=== PATIENT | female | born 1960 | race Hispanic/Latino ===

== ENCOUNTER 2022-06-27 03:15 | Emergency (ER) | payer OTHER ==
[2022-06-27] MEDS ORDERED: ASPIRIN 81MG CHEW TAB PO ONE (03:30)
[2022-06-27 03:49] LABS: BASOPHILS % (AUTO) 0.8 % (0.0-5.0); EOSINOPHILS % (AUTO) 2.7 % (0.0-8.0); LYMPHOCYTES % (AUTO) 19.5 % (21.0-51.0); MEAN CORPUSCULAR HEMOGLOBIN 29.1 pg (27.0-33.0); MEAN CORPUSCULAR HGB CONC 32.3 g/dL (32.0-36.0); MEAN CORPUSCULAR VOLUME 90.2 fL (79-99); MONOCYTES % (AUTO) 9.2 % (3.0-13.0); NEUTROPHILS % (AUTO) 67.4 % (40.0-77.0); PLATELET COUNT (AUTO) 263 K/uL (130-400); RED BLOOD CELL COUNT(AUTO) 3.88 MIL/uL (4.00-5.50); RED CELL DISTRIBUTION WIDTH 14.1 % (11.0-15.5); WHITE BLOOD COUNT (AUTO) 7.9 K/uL (4.8-10.8)
[2022-06-27 04:36] LABS: CREATININE 1.1 mg/dL (0.5-1.5); POTASSIUM 4.5 mmol/L (3.5-5.1)
[2022-06-27 04:37] LABS: TOTAL PROTEIN, SERUM 7.1 g/dL (6.0-8.3)
[2022-06-27 04:55] LABS: APPEARANCE,URINE CLOUDY (CLEAR); BILIRUBIN,URINE NEGATIVE (NEGATIVE); COLOR,URINE COLORLESS (YELLOW); GLUCOSE, URINE (UA) NEGATIVE (NEGATIVE); KETONES,URINE NEGATIVE (NEGATIVE); LEUKOCYTE ESTERASE ,URINE 250 Leu/uL (NEGATIVE); NITRATE,URINE NEGATIVE (NEGATIVE); OCCULT BLOOD,URINE NEGATIVE (NEGATIVE); PROTEIN,URINE NEGATIVE (NEGATIVE); UROBILINOGEN,URINE 0.2 mg/dL (0.2-1.0)
[2022-06-27 05:01] LABS: BACTERIA,URINE FEW /HPF (None Seen); SQUAMOUS EPITHELIAL CELL,UR MOD /HPF (0-2)
[2022-06-27 05:09] VITALS: BP 126/57
[2022-06-27] MEDS ORDERED: SULF1TAB42 PO (05:09)
[2022-06-27] MEDS ORDERED: SULFAMETHOX-TMP DS 800/160 TAB PO ONE (05:30)
== END 2022-06-27 05:41 | disposition home or self-care (01) ==
LOC: EDH 03:15
DX: N39.0 Urinary tract infection, site not specified (principal); R07.9 Chest pain, unspecified; R06.02 Shortness of breath; E11.9 Type 2 diabetes mellitus without complications
CPT/HCPCS: 36415; 71045; 80053; 81001; 84484; 85025; 87088; 93005

== ENCOUNTER 2022-07-01 22:43 | Inpatient (IN) | payer OTHER ==
[~2022-07-01] VITALS: Ht 149.9 cm; Wt 183.7 kg
[~2022-07-01 22:43] MED LIST: SULF1TAB42 PO
[2022-07-01 23:10] LABS: BASOPHILS % (AUTO) 0.4 % (0.0-5.0); EOSINOPHILS % (AUTO) 1.1 % (0.0-8.0); HEMATOCRIT 34.8 % (36-48); LYMPHOCYTES % (AUTO) 11.9 % (21.0-51.0); MEAN CORPUSCULAR HEMOGLOBIN 28.8 pg (27.0-33.0); MEAN CORPUSCULAR HGB CONC 33.6 g/dL (32.0-36.0); MEAN CORPUSCULAR VOLUME 85.7 fL (79-99); MONOCYTES % (AUTO) 7.7 % (3.0-13.0); NEUTROPHILS % (AUTO) 78.3 % (40.0-77.0); PLATELET COUNT (AUTO) 251 K/uL (130-400); RED BLOOD CELL COUNT(AUTO) 4.06 MIL/uL (4.00-5.50); RED CELL DISTRIBUTION WIDTH 13.8 % (11.0-15.5)
[2022-07-01 23:26] LABS: APPEARANCE,URINE CLEAR (CLEAR); BILIRUBIN,URINE NEGATIVE (NEGATIVE); COLOR,URINE COLORLESS (YELLOW); GLUCOSE, URINE (UA) NEGATIVE (NEGATIVE); KETONES,URINE NEGATIVE (NEGATIVE); LEUKOCYTE ESTERASE ,URINE NEGATIVE Leu/uL (NEGATIVE); NITRATE,URINE NEGATIVE (NEGATIVE); OCCULT BLOOD,URINE NEGATIVE (NEGATIVE); PROTEIN,URINE NEGATIVE (NEGATIVE); UROBILINOGEN,URINE 0.2 mg/dL (0.2-1.0)
[2022-07-01 23:28] LABS: ALBUMIN 3.4 g/dL (3.5-5.0); CREATININE 1.4 mg/dL (0.5-1.5); POTASSIUM 4.5 mmol/L (3.5-5.1); TOTAL PROTEIN, SERUM 6.7 g/dL (6.0-8.3)
[2022-07-01 23:30] LABS: B-TYPE NATRIURETIC PEPTIDE 297 pg/mL (0-100)
[2022-07-02] VITALS (33 sets, daily range): BP systolic 83–151; BP diastolic 32–92
[2022-07-02] MEDS ORDERED: HYDRALAZINE 20MG/ML VIAL IV PRN (00:30)
[2022-07-02] MEDS ORDERED: LACTULOSE 20 GM/30 ML UDCUP PO PRN (00:30)
[2022-07-02] MEDS ORDERED: DOPAMINE 800MG/D5 250ML 250 ML IV PRN (00:30)
[2022-07-02] MEDS ORDERED: ALBUTEROL 0.083% 2.5 MG/3 ML INH IH PRN (00:30)
[2022-07-02] MEDS ORDERED: SODIUM CHLORIDE 3% 500 ML IV SCH (00:30)
[2022-07-02 00:56] LABS: ABG BASE EXCESS -4.3 mmol/L (-2.0-3.0); ABG HCO3 17.6 mmol/L (21.0-28.0); ABG OXYGEN SATURATION 96.1 % (95.0-99.0); ABG PCO2 25 mmHg (32-45)
[2022-07-02 01:01] LABS: INR 0.99 (0.85-1.15); PROTHROMBIN TIME 10.8 SEC (9.6-11.6)
[2022-07-02 01:03] LABS: PARTIAL THROMBOPLASTIN TIME 26.7 SEC (26.3-35.5)
[2022-07-02] MEDS: CEFTRIAXONE 2GM VIAL IVPB SCH (04:50)
[2022-07-02] MEDS ORDERED: LISI2.5T13 PO (05:59)
[2022-07-02] MEDS ORDERED: SIMV5TAB58 PO (05:59)
[2022-07-02] MEDS ORDERED: ACETAMINOPHEN 325 MG TAB PO PRN (08:30)
[2022-07-02 08:59] LABS: CREATININE 1.3 mg/dL (0.5-1.5); POTASSIUM 4.1 mmol/L (3.5-5.1)
[2022-07-02] MEDS ORDERED: DOCUSATE SODIUM 100 MG CAP PO SCH (09:00)
[2022-07-02] MEDS ORDERED: HYDROCODONE/ACETAMINOPHEN 10/325 MG TAB PO PRN (10:30)
[2022-07-02] MEDS: ALPRAZOLAM 0.25 MG TABLET PO PRN ×2 (10:34→18:38)
[2022-07-02] MEDS: HYDROCODONE/ACETAMINOPHEN 5/325 MG TAB PO PRN ×3 (10:35→23:03)
[2022-07-02] MEDS: INSULIN HUMULIN R 100 UNIT/ML 3ML SQ SCH ×3 (10:45→21:00)
[2022-07-02] MEDS ORDERED: ONDANSETRON 4MG INJ ONE (14:52)
[2022-07-02] MEDS ORDERED: ONDANSETRON 4MG INJ IVP PRN (15:30)
[2022-07-02] MEDS ORDERED: SODIUM CHLORIDE 3% 500 ML IV PRN (21:30)
[2022-07-03] VITALS (37 sets, daily range): BP systolic 90–161; BP diastolic 28–79
[2022-07-03] MEDS: CEFTRIAXONE 2GM VIAL IVPB SCH (04:08)
[2022-07-03 05:18] LABS: BASOPHILS % (AUTO) 0.3 % (0.0-5.0); EOSINOPHILS % (AUTO) 0.9 % (0.0-8.0); HEMATOCRIT 33.3 % (36-48); LYMPHOCYTES % (AUTO) 6.1 % (21.0-51.0); MEAN CORPUSCULAR HEMOGLOBIN 28.9 pg (27.0-33.0); MEAN CORPUSCULAR VOLUME 87.6 fL (79-99); MONOCYTES % (AUTO) 9.9 % (3.0-13.0); NEUTROPHILS % (AUTO) 82.2 % (40.0-77.0); PLATELET COUNT (AUTO) 246 K/uL (130-400); RED CELL DISTRIBUTION WIDTH 14.2 % (11.0-15.5); WHITE BLOOD COUNT (AUTO) 11.1 K/uL (4.8-10.8)
[2022-07-03 05:33] LABS: CREATININE 2.4 mg/dL (0.5-1.5); MAGNESIUM 1.8 mg/dL (1.80-2.40); PHOSPHORUS 5.8 mg/dL (2.5-4.9); POTASSIUM 4.9 mmol/L (3.5-5.1)
[2022-07-03] MEDS: INSULIN HUMULIN R 100 UNIT/ML 3ML SQ SCH ×4 (06:39→21:00)
[2022-07-03] MEDS: 0.9%NACL 1000ML 1,000 ML IV SCH ×2 (07:45→21:32)
[2022-07-03] MEDS ORDERED: VANCOMYCIN 1G 1 GM in 0.9% NACL 250ML 250 ML IV PRN (10:30)
[2022-07-03] MEDS ORDERED: IPRATROPIUM/ALBUTEROL SULFATE 3 ML SOLUTION IH ONE (10:39)
[2022-07-03] MEDS ORDERED: VANCOMYCIN 1G/250ML KIT 250 ML IV PRN (11:00)
[2022-07-03] MEDS: IPRATROPIUM/ALBUTEROL SULFATE 3 ML SOLUTION IH SCH (11:39)
[2022-07-03 11:43] LABS: BASOPHILS % (AUTO) 0.3 % (0.0-5.0); EOSINOPHILS % (AUTO) 0.5 % (0.0-8.0); HEMATOCRIT 35.5 % (36-48); LYMPHOCYTES % (AUTO) 5.2 % (21.0-51.0); MEAN CORPUSCULAR HEMOGLOBIN 29.3 pg (27.0-33.0); MEAN CORPUSCULAR VOLUME 94.4 fL (79-99); MONOCYTES % (AUTO) 9.8 % (3.0-13.0); NEUTROPHILS % (AUTO) 83.9 % (40.0-77.0); PLATELET COUNT (AUTO) 200 K/uL (130-400); RED BLOOD CELL COUNT(AUTO) 3.76 MIL/uL (4.00-5.50); RED CELL DISTRIBUTION WIDTH 14.5 % (11.0-15.5); WHITE BLOOD COUNT (AUTO) 9.8 K/uL (4.8-10.8)
[2022-07-03 12:36] LABS: POTASSIUM 5.2 mmol/L (3.5-5.1)
[2022-07-03] MEDS: MAGNESIUM 2GM PREMIX 50ML 50 ML IV PRN (13:17)
[2022-07-03] MEDS ORDERED: LIDOCAINE HCL 400MG/20ML VIAL ONE (15:08)
[2022-07-03] MEDS ORDERED: LIDOCAINE HCL 1% 20 ML VIAL ONE (15:09)
[2022-07-03] MEDS: MEROPENEM 1 GM VIAL IVPB SCH (16:14)
[2022-07-03 17:18] LABS: CREATININE,URINE RANDOM 234 mg/dL (30-135); SODIUM,URINE RANDOM 16 mmol/l (40-220)
[2022-07-03] MEDS: ALPRAZOLAM 0.25 MG TABLET PO PRN (17:29)
[2022-07-03] MEDS: HYDROCODONE/ACETAMINOPHEN 5/325 MG TAB PO PRN (17:30)
[2022-07-03] MEDS ORDERED: SODIUM BICARB 8.4% 50ML SYRINGE IVP SCH ×2 (19:30)
[2022-07-03] MEDS ORDERED: SODIUM BICARB 50MEQ 50ML VIAL IV ONE (19:30)
[2022-07-04] VITALS (24 sets, daily range): BP systolic 102–166; BP diastolic 33–92
[2022-07-04] MEDS: ALPRAZOLAM 0.25 MG TABLET PO PRN ×2 (00:05→19:56)
[2022-07-04] MEDS: HYDROCODONE/ACETAMINOPHEN 5/325 MG TAB PO PRN (00:11)
[2022-07-04] MEDS: IPRATROPIUM/ALBUTEROL SULFATE 3 ML SOLUTION IH SCH ×5 (00:50→19:34)
[2022-07-04] MEDS: MEROPENEM 1 GM VIAL IVPB SCH ×2 (03:12→14:25)
[2022-07-04 05:05] LABS: BASOPHILS % (AUTO) 0.2 % (0.0-5.0); EOSINOPHILS % (AUTO) 0.7 % (0.0-8.0); HEMATOCRIT 35.9 % (36-48); LYMPHOCYTES % (AUTO) 5.1 % (21.0-51.0); MEAN CORPUSCULAR HEMOGLOBIN 28.9 pg (27.0-33.0); MEAN CORPUSCULAR HGB CONC 31.5 g/dL (32.0-36.0); MEAN CORPUSCULAR VOLUME 91.8 fL (79-99); MONOCYTES % (AUTO) 11.9 % (3.0-13.0); NEUTROPHILS % (AUTO) 81.1 % (40.0-77.0); PLATELET COUNT (AUTO) 164 K/uL (130-400); RED BLOOD CELL COUNT(AUTO) 3.91 MIL/uL (4.00-5.50); RED CELL DISTRIBUTION WIDTH 14.5 % (11.0-15.5); WHITE BLOOD COUNT (AUTO) 12.7 K/uL (4.8-10.8)
[2022-07-04 05:20] LABS: CREATININE 2.8 mg/dL (0.5-1.5); MAGNESIUM 2.3 mg/dL (1.80-2.40); POTASSIUM 4.9 mmol/L (3.5-5.1)
[2022-07-04 05:41] LABS: B-TYPE NATRIURETIC PEPTIDE 372 pg/mL (0-100)
[2022-07-04] MEDS: INSULIN HUMULIN R 100 UNIT/ML 3ML SQ SCH ×4 (06:47→21:00)
[2022-07-04 10:34] LABS: ABG HCO3 19.7 mmol/L (21.0-28.0); ABG OXYGEN SATURATION 93.8 % (95.0-99.0); ABG PCO2 44 mmHg (32-45)
[2022-07-04] MEDS: 0.9%NACL 1000ML 1,000 ML IV SCH (12:10)
[2022-07-04] MEDS ORDERED: FUROSEMIDE 40MG VIAL ONE (14:16)
[2022-07-04] MEDS: FUROSEMIDE 40MG VIAL IV SCH (14:30)
[2022-07-04] MEDS ORDERED: FUROSEMIDE 40MG VIAL IV SCH (21:00)
[2022-07-04] MEDS: FAMOTIDINE 20MG VIAL IV SCH (21:38)
[2022-07-05] VITALS (57 sets, daily range): BP systolic 104–179; BP diastolic 45–112
[2022-07-05] MEDS: ALPRAZOLAM 0.25 MG TABLET PO PRN ×2 (00:39→20:54)
[2022-07-05] MEDS: IPRATROPIUM/ALBUTEROL SULFATE 3 ML SOLUTION IH SCH ×5 (00:45→23:28)
[2022-07-05 02:32] LABS: CREATININE 1.7 mg/dL (0.5-1.5); MAGNESIUM 2.4 mg/dL (1.80-2.40); POTASSIUM 4.9 mmol/L (3.5-5.1)
[2022-07-05] MEDS: FUROSEMIDE 40MG VIAL IV SCH ×2 (03:27→14:02)
[2022-07-05] MEDS: MEROPENEM 1 GM VIAL IVPB SCH ×2 (03:27→14:02)
[2022-07-05 04:49] LABS: BASOPHILS % (AUTO) 0.4 % (0.0-5.0); EOSINOPHILS % (AUTO) 1.7 % (0.0-8.0); HEMATOCRIT 34.2 % (36-48); LYMPHOCYTES % (AUTO) 6.9 % (21.0-51.0); MEAN CORPUSCULAR HEMOGLOBIN 28.5 pg (27.0-33.0); MEAN CORPUSCULAR HGB CONC 30.7 g/dL (32.0-36.0); MEAN CORPUSCULAR VOLUME 92.9 fL (79-99); MONOCYTES % (AUTO) 8.4 % (3.0-13.0); NEUTROPHILS % (AUTO) 81.9 % (40.0-77.0); PLATELET COUNT (AUTO) 190 K/uL (130-400); RED BLOOD CELL COUNT(AUTO) 3.68 MIL/uL (4.00-5.50); RED CELL DISTRIBUTION WIDTH 14.6 % (11.0-15.5); WHITE BLOOD COUNT (AUTO) 10.9 K/uL (4.8-10.8)
[2022-07-05 04:53] LABS: INR 1.05 (0.85-1.15); PROTHROMBIN TIME 11.4 SEC (9.6-11.6)
[2022-07-05 04:58] LABS: ALBUMIN 2.6 g/dL (3.5-5.0); CREATININE 1.8 mg/dL (0.5-1.5); MAGNESIUM 2.4 mg/dL (1.80-2.40); POTASSIUM 4.6 mmol/L (3.5-5.1); TOTAL PROTEIN, SERUM 6.9 g/dL (6.0-8.3)
[2022-07-05 05:30] LABS: ABG BASE EXCESS -5.4 mmol/L (-2.0-3.0); ABG HCO3 21.4 mmol/L (21.0-28.0); ABG OXYGEN SATURATION 94.6 % (95.0-99.0); ABG PCO2 47 mmHg (32-45)
[2022-07-05] MEDS: INSULIN HUMULIN R 100 UNIT/ML 3ML SQ SCH ×4 (07:30→21:00)
[2022-07-05] MEDS: HYDROCODONE/ACETAMINOPHEN 5/325 MG TAB PO PRN (11:25)
[2022-07-05] MEDS: FAMOTIDINE 20MG VIAL IV SCH (20:33)
[2022-07-06] VITALS (70 sets, daily range): BP systolic 114–176; BP diastolic 37–85
[2022-07-06] MEDS: MEROPENEM 1 GM VIAL IVPB SCH ×2 (02:03→13:40)
[2022-07-06 04:18] LABS: BASOPHILS % (AUTO) 0.7 % (0.0-5.0); EOSINOPHILS % (AUTO) 3.4 % (0.0-8.0); LYMPHOCYTES % (AUTO) 10.4 % (21.0-51.0); MEAN CORPUSCULAR HEMOGLOBIN 28.8 pg (27.0-33.0); MEAN CORPUSCULAR HGB CONC 31.8 g/dL (32.0-36.0); MEAN CORPUSCULAR VOLUME 90.7 fL (79-99); MONOCYTES % (AUTO) 10.5 % (3.0-13.0); NEUTROPHILS % (AUTO) 74.5 % (40.0-77.0); PLATELET COUNT (AUTO) 214 K/uL (130-400); RED BLOOD CELL COUNT(AUTO) 3.64 MIL/uL (4.00-5.50); RED CELL DISTRIBUTION WIDTH 14.6 % (11.0-15.5); WHITE BLOOD COUNT (AUTO) 8.9 K/uL (4.8-10.8)
[2022-07-06 04:31] LABS: CREATININE 1.4 mg/dL (0.5-1.5); POTASSIUM 4.1 mmol/L (3.5-5.1)
[2022-07-06 04:33] LABS: INR 1.04 (0.85-1.15); PROTHROMBIN TIME 11.3 SEC (9.6-11.6)
[2022-07-06 04:34] LABS: PARTIAL THROMBOPLASTIN TIME 32.8 SEC (26.3-35.5)
[2022-07-06] MEDS: GUAIFENESIN-DM 200/20 MG 10 ML PO PRN ×2 (05:58→13:40)
[2022-07-06] MEDS: IPRATROPIUM/ALBUTEROL SULFATE 3 ML SOLUTION IH SCH ×4 (06:17→23:26)
[2022-07-06] MEDS: INSULIN HUMULIN R 100 UNIT/ML 3ML SQ SCH ×4 (06:50→21:00)
[2022-07-06] MEDS: NYSTATIN 15 GM POWDER TP SCH ×2 (11:04→22:17)
[2022-07-06] MEDS ORDERED: LIDOCAINE HCL 1% MDV 50ML VIAL ONE (18:56)
[2022-07-06] MEDS ORDERED: BUPIVACAINE/PF 0.25% 10ML VIAL IJ ONE (18:58)
[2022-07-06] MEDS ORDERED: MIDAZOLAM HCL 1 MG/ML 2ML VIAL ONE (19:02)
[2022-07-06] MEDS ORDERED: ONDANSETRON 4MG INJ ONE (19:02)
[2022-07-06] MEDS ORDERED: PROPOFOL 10 MG/ML 20ML VIAL IV ONE (19:02)
[2022-07-06] MEDS ORDERED: ROCURONIUM 10MG/1ML SYR 10 MG/ML ML ONE (19:02)
[2022-07-06] MEDS ORDERED: FENTANYL CITRATE PF 50 MCG/1 ML 2ML VIAL ONE ×4 (19:02→21:50)
[2022-07-06] MEDS ORDERED: KETAMINE 50MG/ML SYRINGE 50 MG/ML DISP.SYRIN ONE (19:20)
[2022-07-06] MEDS ORDERED: PHENYLEPHRINE HCL 10 MG/ML 1ML VIAL IV ONE (19:39)
[2022-07-06 20:10] LABS: ABG BASE EXCESS -1.4 mmol/L (-2.0-3.0); ABG HCO3 23.4 mmol/L (21.0-28.0); ABG OXYGEN SATURATION 99.7 % (95.0-99.0); ABG PCO2 39 mmHg (32-45)
[2022-07-06] MEDS ORDERED: BACITRACIN 1 EACH PACKET TP ONE (20:49)
[2022-07-06] MEDS ORDERED: PROPOFOL 1000 MG/100 ML 100 ML IV ONE ×2 (20:59→22:55)
[2022-07-06] MEDS ORDERED: ROCURONIUM BROMIDE 10MG/1ML 5ML VL ONE (21:13)
[2022-07-06] MEDS: FAMOTIDINE 20MG VIAL IV SCH (22:16)
[2022-07-06 22:31] LABS: ABG BASE EXCESS -4.2 mmol/L (-2.0-3.0); ABG HCO3 21.2 mmol/L (21.0-28.0); ABG OXYGEN SATURATION 98.5 % (95.0-99.0); ABG PCO2 40 mmHg (32-45)
[2022-07-06] MEDS: PROPOFOL 1000 MG/100 ML IV PRN (23:27)
[2022-07-06] MEDS ORDERED: PROPOFOL 1000 MG/100 ML IV PRN (23:30)
[2022-07-07] VITALS (105 sets, daily range): BP systolic 79–183; BP diastolic 48–97
[2022-07-07] MEDS: NYSTATIN 15 GM POWDER TP SCH ×4 (00:32→19:11)
[2022-07-07] MEDS: PROPOFOL 1000 MG/100 ML IV PRN ×5 (01:01→10:49)
[2022-07-07] MEDS: MEROPENEM 1 GM VIAL IVPB SCH ×2 (02:59→15:53)
[2022-07-07 03:58] LABS: BASOPHILS % (AUTO) 0.5 % (0.0-5.0); LYMPHOCYTES % (AUTO) 10.3 % (21.0-51.0); MEAN CORPUSCULAR HEMOGLOBIN 28.8 pg (27.0-33.0); MEAN CORPUSCULAR HGB CONC 31.5 g/dL (32.0-36.0); MEAN CORPUSCULAR VOLUME 91.6 fL (79-99); MONOCYTES % (AUTO) 10.1 % (3.0-13.0); NEUTROPHILS % (AUTO) 74.6 % (40.0-77.0); PLATELET COUNT (AUTO) 200 K/uL (130-400); RED BLOOD CELL COUNT(AUTO) 3.71 MIL/uL (4.00-5.50); RED CELL DISTRIBUTION WIDTH 14.9 % (11.0-15.5); WHITE BLOOD COUNT (AUTO) 9.2 K/uL (4.8-10.8)
[2022-07-07 04:08] LABS: MAGNESIUM 1.9 mg/dL (1.80-2.40); POTASSIUM 4.4 mmol/L (3.5-5.1)
[2022-07-07] MEDS: MAGNESIUM 2GM PREMIX 50ML 50 ML IV PRN (04:57)
[2022-07-07] MEDS: INSULIN HUMULIN R 100 UNIT/ML 3ML SQ SCH ×4 (05:08→20:57)
[2022-07-07] MEDS: IPRATROPIUM/ALBUTEROL SULFATE 3 ML SOLUTION IH SCH ×2 (06:56→11:04)
[2022-07-07 07:23] LABS: ABG BASE EXCESS -1.5 mmol/L (-2.0-3.0); ABG HCO3 25.9 mmol/L (21.0-28.0); ABG OXYGEN SATURATION 90.7 % (95.0-99.0); ABG PCO2 56 mmHg (32-45)
[2022-07-07] MEDS: FENTANYL 2500MCG+NS 250ML IV.SOLN IV SCH ×2 (08:46→19:11)
[2022-07-07] MEDS: FAMOTIDINE 20MG VIAL IV SCH ×2 (08:46→20:49)
[2022-07-07] MEDS ORDERED: LACTULOSE 20 GM/30 ML UDCUP PO ONE ×2 (09:00→21:00)
[2022-07-08] VITALS (85 sets, daily range): BP systolic 99–300; BP diastolic 38–299
[2022-07-08] MEDS: PROPOFOL 1000 MG/100 ML IV PRN (00:42)
[2022-07-08] MEDS: NYSTATIN 15 GM POWDER TP SCH ×4 (00:42→21:54)
[2022-07-08] MEDS: IPRATROPIUM/ALBUTEROL SULFATE 3 ML SOLUTION IH SCH ×5 (01:08→23:21)
[2022-07-08] MEDS: MEROPENEM 1 GM VIAL IVPB SCH ×2 (03:18→15:48)
[2022-07-08] MEDS: FENTANYL 2500MCG+NS 250ML IV.SOLN IV SCH (03:34)
[2022-07-08 04:50] LABS: ABG BASE EXCESS 1.6 mmol/L (-2.0-3.0); ABG HCO3 24.4 mmol/L (21.0-28.0); ABG OXYGEN SATURATION 96.8 % (95.0-99.0); ABG PCO2 33 mmHg (32-45)
[2022-07-08 04:59] LABS: BASOPHILS % (AUTO) 0.6 % (0.0-5.0); EOSINOPHILS % (AUTO) 6.1 % (0.0-8.0); HEMATOCRIT 33.1 % (36-48); LYMPHOCYTES % (AUTO) 18.5 % (21.0-51.0); MEAN CORPUSCULAR HGB CONC 32.3 g/dL (32.0-36.0); MEAN CORPUSCULAR VOLUME 89.7 fL (79-99); MONOCYTES % (AUTO) 10.6 % (3.0-13.0); NEUTROPHILS % (AUTO) 63.8 % (40.0-77.0); PLATELET COUNT (AUTO) 167 K/uL (130-400); RED BLOOD CELL COUNT(AUTO) 3.69 MIL/uL (4.00-5.50); RED CELL DISTRIBUTION WIDTH 14.6 % (11.0-15.5); WHITE BLOOD COUNT (AUTO) 7.9 K/uL (4.8-10.8)
[2022-07-08 05:08] LABS: CREATININE 0.8 mg/dL (0.5-1.5); POTASSIUM 3.7 mmol/L (3.5-5.1)
[2022-07-08] MEDS: INSULIN HUMULIN R 100 UNIT/ML 3ML SQ SCH ×4 (07:30→20:20)
[2022-07-08 09:30] LABS: ABG BASE EXCESS -0.9 mmol/L (-2.0-3.0); ABG HCO3 24.4 mmol/L (21.0-28.0); ABG OXYGEN SATURATION 97.4 % (95.0-99.0); ABG PCO2 43 mmHg (32-45)
[2022-07-08] MEDS: FAMOTIDINE 20MG VIAL IV SCH ×2 (12:00→21:54)
[2022-07-08 23:59] LABS: ALBUMIN 2.2 g/dL (3.5-5.0); CREATININE 0.8 mg/dL (0.5-1.5); MAGNESIUM 1.8 mg/dL (1.80-2.40); POTASSIUM 4.5 mmol/L (3.5-5.1); TOTAL PROTEIN, SERUM 6.4 g/dL (6.0-8.3)
[2022-07-09] VITALS (54 sets, daily range): BP systolic 57–171; BP diastolic 30–120
[2022-07-09] MEDS: NYSTATIN 15 GM POWDER TP SCH ×4 (00:13→21:30)
[2022-07-09] MEDS: MAGNESIUM 2GM PREMIX 50ML 50 ML IV PRN (01:01)
[2022-07-09] MEDS: MEROPENEM 1 GM VIAL IVPB SCH ×2 (02:36→14:49)
[2022-07-09 05:27] LABS: BASOPHILS % (AUTO) 0.5 % (0.0-5.0); EOSINOPHILS % (AUTO) 4.6 % (0.0-8.0); HEMATOCRIT 36.1 % (36-48); MEAN CORPUSCULAR HEMOGLOBIN 28.4 pg (27.0-33.0); MEAN CORPUSCULAR HGB CONC 30.5 g/dL (32.0-36.0); MEAN CORPUSCULAR VOLUME 93.3 fL (79-99); MONOCYTES % (AUTO) 12.6 % (3.0-13.0); NEUTROPHILS % (AUTO) 69.8 % (40.0-77.0); PLATELET COUNT (AUTO) 166 K/uL (130-400); RED BLOOD CELL COUNT(AUTO) 3.87 MIL/uL (4.00-5.50); WHITE BLOOD COUNT (AUTO) 8.1 K/uL (4.8-10.8)
[2022-07-09 05:35] LABS: CREATININE 0.8 mg/dL (0.5-1.5); MAGNESIUM 2.2 mg/dL (1.80-2.40); POTASSIUM 3.9 mmol/L (3.5-5.1)
[2022-07-09] MEDS: INSULIN HUMULIN R 100 UNIT/ML 3ML SQ SCH ×4 (07:30→21:00)
[2022-07-09] MEDS: IPRATROPIUM/ALBUTEROL SULFATE 3 ML SOLUTION IH SCH ×4 (07:31→23:48)
[2022-07-09] MEDS: FAMOTIDINE 20MG VIAL IV SCH ×2 (10:09→21:26)
[2022-07-09] MEDS ORDERED: LACTULOSE 20 GM/30 ML UDCUP PO PRN (12:30)
[2022-07-10] VITALS (19 sets, daily range): BP systolic 108–174; BP diastolic 59–87
[2022-07-10] MEDS: MEROPENEM 1 GM VIAL IVPB SCH ×2 (03:11→14:33)
[2022-07-10 06:31] LABS: HEMATOCRIT 33.2 % (36-48); MEAN CORPUSCULAR HGB CONC 30.7 g/dL (32.0-36.0); MEAN CORPUSCULAR VOLUME 94.3 fL (79-99); RED BLOOD CELL COUNT(AUTO) 3.52 MIL/uL (4.00-5.50); RED CELL DISTRIBUTION WIDTH 14.8 % (11.0-15.5); WHITE BLOOD COUNT (AUTO) 7.4 K/uL (4.8-10.8)
[2022-07-10] MEDS: NYSTATIN 15 GM POWDER TP SCH ×4 (06:43→18:00)
[2022-07-10] MEDS: IPRATROPIUM/ALBUTEROL SULFATE 3 ML SOLUTION IH SCH ×4 (06:48→23:17)
[2022-07-10 06:51] LABS: CREATININE 0.7 mg/dL (0.5-1.5); MAGNESIUM 1.9 mg/dL (1.80-2.40); POTASSIUM 4.5 mmol/L (3.5-5.1)
[2022-07-10] MEDS: INSULIN HUMULIN R 100 UNIT/ML 3ML SQ SCH (07:30)
[2022-07-10] MEDS: FAMOTIDINE 20MG VIAL IV SCH ×3 (08:30→20:34)
[2022-07-11] MEDS: NYSTATIN 15 GM POWDER TP SCH ×4 (01:31→19:25)
[2022-07-11 03:25] VITALS: BP 132/75
[2022-07-11 03:41] LABS: BASOPHILS % (AUTO) 0.6 % (0.0-5.0); EOSINOPHILS % (AUTO) 5.5 % (0.0-8.0); HEMATOCRIT 33.8 % (36-48); LYMPHOCYTES % (AUTO) 14.8 % (21.0-51.0); MEAN CORPUSCULAR HEMOGLOBIN 28.4 pg (27.0-33.0); MEAN CORPUSCULAR HGB CONC 30.2 g/dL (32.0-36.0); MEAN CORPUSCULAR VOLUME 94.2 fL (79-99); NEUTROPHILS % (AUTO) 65.7 % (40.0-77.0); PLATELET COUNT (AUTO) 163 K/uL (130-400); RED BLOOD CELL COUNT(AUTO) 3.59 MIL/uL (4.00-5.50); RED CELL DISTRIBUTION WIDTH 14.6 % (11.0-15.5); WHITE BLOOD COUNT (AUTO) 7.1 K/uL (4.8-10.8)
[2022-07-11] MEDS: MEROPENEM 1 GM VIAL IVPB SCH ×2 (03:43→15:13)
[2022-07-11 03:55] LABS: CREATININE 0.6 mg/dL (0.5-1.5); POTASSIUM 4.4 mmol/L (3.5-5.1)
[2022-07-11] MEDS: IPRATROPIUM/ALBUTEROL SULFATE 3 ML SOLUTION IH SCH ×3 (06:19→23:43)
[2022-07-11] MEDS: FAMOTIDINE 20MG VIAL IV SCH ×2 (08:22→21:04)
[2022-07-11 08:30] VITALS: BP 130/71
[2022-07-11 12:16] VITALS: BP 133/76
[2022-07-11 16:30] VITALS: BP 138/73
[2022-07-11 19:06] VITALS: BP 132/67
[2022-07-11] MEDS: GUAIFENESIN-DM 200/20 MG 10 ML PO PRN (21:04)
[2022-07-11 23:27] VITALS: BP 143/75
[2022-07-12] MEDS: NYSTATIN 15 GM POWDER TP SCH ×4 (00:39→18:34)
[2022-07-12] MEDS: MEROPENEM 1 GM VIAL IVPB SCH ×2 (03:33→14:12)
[2022-07-12 03:47] VITALS: BP 117/54
[2022-07-12] MEDS: IPRATROPIUM/ALBUTEROL SULFATE 3 ML SOLUTION IH SCH ×4 (06:42→22:59)
[2022-07-12] MEDS: FAMOTIDINE 20MG VIAL IV SCH ×2 (08:17→20:02)
[2022-07-12] MEDS: GUAIFENESIN-DM 200/20 MG 10 ML PO PRN (08:25)
[2022-07-12] MEDS: BALSAM PERU/CASTOR OIL 60 GM TUBE TP SCH ×3 (08:36→20:02)
[2022-07-12 08:53] VITALS: BP 145/73
[2022-07-12 12:31] VITALS: BP 123/66
[2022-07-12 16:14] VITALS: BP 128/66
[2022-07-12 19:44] VITALS: BP 121/58
[2022-07-12 23:34] VITALS: BP 136/69
[2022-07-13] MEDS: MEROPENEM 1 GM VIAL IVPB SCH (03:45)
[2022-07-13 03:52] LABS: BASOPHILS % (AUTO) 0.6 % (0.0-5.0); EOSINOPHILS % (AUTO) 6.2 % (0.0-8.0); LYMPHOCYTES % (AUTO) 20.9 % (21.0-51.0); MEAN CORPUSCULAR HEMOGLOBIN 28.2 pg (27.0-33.0); MEAN CORPUSCULAR HGB CONC 30.6 g/dL (32.0-36.0); MEAN CORPUSCULAR VOLUME 92.2 fL (79-99); MONOCYTES % (AUTO) 16.4 % (3.0-13.0); NEUTROPHILS % (AUTO) 55.1 % (40.0-77.0); PLATELET COUNT (AUTO) 170 K/uL (130-400); RED BLOOD CELL COUNT(AUTO) 3.47 MIL/uL (4.00-5.50); RED CELL DISTRIBUTION WIDTH 14.1 % (11.0-15.5); WHITE BLOOD COUNT (AUTO) 5.3 K/uL (4.8-10.8)
[2022-07-13 03:55] LABS: CREATININE 0.7 mg/dL (0.5-1.5); POTASSIUM 4.2 mmol/L (3.5-5.1)
[2022-07-13 04:00] VITALS: BP 113/56
[2022-07-13] MEDS: NYSTATIN 15 GM POWDER TP SCH ×3 (06:21→13:56)
[2022-07-13] MEDS: IPRATROPIUM/ALBUTEROL SULFATE 3 ML SOLUTION IH SCH ×2 (06:33→12:12)
[2022-07-13 07:00] VITALS: BP 139/78
[2022-07-13] MEDS: FAMOTIDINE 20MG VIAL IV SCH (10:26)
[2022-07-13] MEDS: BALSAM PERU/CASTOR OIL 60 GM TUBE TP SCH ×2 (10:27→13:56)
[2022-07-13 11:00] VITALS: BP 137/66
[2022-07-13] MEDS ORDERED: NYST100P2 MC (13:02)
== END 2022-07-13 15:03 | DRG 242 ==
LOC: EDH 22:43 → EDHIP 07-02 00:28 → 2CH 07-02 05:34 → 2AH 07-10 09:25
PROVIDERS: ADMIT Internal Medicine Pulmonary Disease; ATTEND Internal Medicine Pulmonary Disease
PROC: 5A1223Z Performance of Cardiac Pacing, Continuous (ICD-10-PCS; principal; 2022-07-03)
PROC: 5A09357 Assistance with Respiratory Ventilation, Less than 24 Consecutive Hours, Continuous Positive Airway Pressure (ICD-10-PCS; 2022-07-05)
PROC: 0JH606Z Insertion of Pacemaker, Dual Chamber into Chest Subcutaneous Tissue and Fascia, Open Approach (ICD-10-PCS; 2022-07-06)
PROC: 02H63JZ Insertion of Pacemaker Lead into Right Atrium, Percutaneous Approach (ICD-10-PCS; 2022-07-06)
PROC: 02HK3JZ Insertion of Pacemaker Lead into Right Ventricle, Percutaneous Approach (ICD-10-PCS; 2022-07-06)
PROC: 5A09357 Assistance with Respiratory Ventilation, Less than 24 Consecutive Hours, Continuous Positive Airway Pressure (ICD-10-PCS; 2022-07-06)
PROC: 5A1945Z Respiratory Ventilation, 24-96 Consecutive Hours (ICD-10-PCS; 2022-07-06)
PROC: 0BH17EZ Insertion of Endotracheal Airway into Trachea, Via Natural or Artificial Opening (ICD-10-PCS; 2022-07-06)
PROC: 5A09357 Assistance with Respiratory Ventilation, Less than 24 Consecutive Hours, Continuous Positive Airway Pressure (ICD-10-PCS; 2022-07-08)
PROC: 5A09357 Assistance with Respiratory Ventilation, Less than 24 Consecutive Hours, Continuous Positive Airway Pressure (ICD-10-PCS; 2022-07-09)
PROC: 5A09357 Assistance with Respiratory Ventilation, Less than 24 Consecutive Hours, Continuous Positive Airway Pressure (ICD-10-PCS; 2022-07-10)
PROC: 5A09357 Assistance with Respiratory Ventilation, Less than 24 Consecutive Hours, Continuous Positive Airway Pressure (ICD-10-PCS; 2022-07-11)
PROC: 5A09357 Assistance with Respiratory Ventilation, Less than 24 Consecutive Hours, Continuous Positive Airway Pressure (ICD-10-PCS; 2022-07-12)
DX: I44.2 Atrioventricular block, complete (principal); I50.33 Acute on chronic diastolic (congestive) heart failure; J18.9 Pneumonia, unspecified organism; J96.01 Acute respiratory failure with hypoxia; E87.1 Hypo-osmolality and hyponatremia; Z68.45 Body mass index [BMI] 70 or greater, adult; E87.20 Acidosis, unspecified; I13.0 Hypertensive heart and chronic kidney disease with heart failure and stage 1 through stage 4 chronic kidney disease, or unspecified chronic kidney disease; N30.00 Acute cystitis without hematuria; Z20.822 Contact with and (suspected) exposure to COVID-19; E86.1 Hypovolemia; E66.01 Morbid (severe) obesity due to excess calories; E11.22 Type 2 diabetes mellitus with diabetic chronic kidney disease; E78.5 Hyperlipidemia, unspecified; E87.5 Hyperkalemia; F41.9 Anxiety disorder, unspecified; I49.5 Sick sinus syndrome; J40 Bronchitis, not specified as acute or chronic; E87.6 Hypokalemia; K59.00 Constipation, unspecified; N18.30 Chronic kidney disease, stage 3 unspecified; Z74.01 Bed confinement status; Z82.49 Family history of ischemic heart disease and other diseases of the circulatory system; Z83.3 Family history of diabetes mellitus; Z85.41 Personal history of malignant neoplasm of cervix uteri
CPT/HCPCS: 33208; 33210; 36415; 36600; 71045; 80048; 80053; 80061; 81003; 82435; 82533; 82570; 82803; 82947; 82948; 83605; 83735; 83880; 83930; 83935; 84100; 84132; 84145; 84295; 84300; 84443; 84484; 84540; 85018; 85025; 85027; 85610; 85730; 86738; 87040; 87071; 87205; 87449; 87635; 87641; 87804; 92610; 93005; 93306; 94002; 94003; 94640; 94660; 94664; 94667; 94668; 97039; 99291; C1785; C1894; C9803; G0378; J0360; J0696; J1265; J1644; J1940; J2185; J2250; J2370; J2405; J2704; J3010; J3370; J3475; J3490

== ENCOUNTER → 2023-10-26 | Outpatient (CLI) | payer OTHER ==
[~2023-10-26] MED LIST changes: +LISI2.5T13 PO; +NYST100P2 MC; +SIMV5TAB58 PO
== END | disposition home or self-care (01) ==
LOC: SHCH 09:42
PROVIDERS: ATTEND Internal Medicine Cardiovascular Disease
DX: I44.2 Atrioventricular block, complete (principal); Z95.0 Presence of cardiac pacemaker
CPT/HCPCS: 93306

== ENCOUNTER → 2023-11-13 | Outpatient (CLI) | payer OTHER ==
[~2023-11-13] MED LIST changes: +PERFLUTREN PROTEIN-A MICROSPHR 0.22 MG/ML VIAL IV ONE
== END | disposition home or self-care (01) ==
LOC: RAH 12:17
PROVIDERS: ATTEND Internal Medicine Cardiovascular Disease
DX: Z95.0 Presence of cardiac pacemaker (principal)
CPT/HCPCS: C8929; Q9956